=== PATIENT | female | born 1975 | race Two or more races ===

== ENCOUNTER 2020-04-26 16:14 | Emergency (ER) | payer MEDICAID ==
[~2020-04-26] VITALS: Ht 162.6 cm; Wt 106.6 kg
--- NOTE | 2020-04-26 16:43 | NUR ---
ED Nurse Note: Pt came for bilateral swelling non pitting edema feet. Pt is alert and orientedx4, ambulatory. Pt denies pain. Pt also states she has bruises. Bilateral post tibial pulses 3+. Pt has been seen by [facility].
[2020-04-26 16:45] VITALS: BP 162/93
--- NOTE | 2020-04-26 17:00 | Diagnostic Imaging Report ---
Indication: Right ankle pain Technique: 3 views of the right ankle Comparison: Findings: No acute fractures. No dislocations. Joint spaces are preserved. Normal mineralization. No radiopaque foreign body. Impression: Negative
--- NOTE | 2020-04-26 17:12 | Diagnostic Imaging Report ---
Indication: Ankle pain Technique: 3 views of the left ankle Comparison: Findings: No acute fractures. No dislocations. Joint spaces are preserved. Normal mineralization. No radiopaque foreign body. Impression: Negative
[2020-04-26 17:23] LABS: ANION GAP 9 mmol/L (5-15); BLOOD UREA NITROGEN 15 mg/dL (7-18); CALCIUM 8.8 MG/DL (8.5-10.1); CARBON DIOXIDE 25 MMOL/L (21-32); CHLORIDE 104 MMOL/L (98-107); CREATININE 0.9 MG/DL (0.55-1.30); POTASSIUM 3.8 MMOL/L (3.5-5.1); SODIUM 138 MMOL/L (136-145)
[2020-04-26] MEDS ORDERED: Tylenol #3 tab (300mg/30mg) ORAL ONE (18:00)
[2020-04-26] MEDS ORDERED: Ketorolac 30mg Inj IV ONE (18:00)
--- NOTE | 2020-04-26 18:05 | Emergency Room Report ---
History of Present Illness General Chief Complaint: Edema Source: Patient Present Illness HPI 44 YO female presents to the ED c/o 10 out of 10 in severity bilateral ankle pain with swelling and bruising noted. Patient denies trauma or fall. Patient reports progressive onset of her symptoms. Patient reports history of high blood pressure and states that her blood pressure has been elevated lately. She denies fevers or chills. She denies history of gout, pseudogout, arthritis or rheumatological conditions. She reports she is able to ambulate and bear weight. She reports standing for long periods of time and ambulating exacerbates her symptoms. she denies erythema. Patient does report that several days ago she was experiencing pain in the left thigh and calf which is still present. She denies smoking hx or recent travel. She denies estrogen use. Allergies: Coded Allergies: No Known Allergies (Unverified , 04/26/20) COVID-19 Screening Contact w/high risk pt: No Experienced COVID-19 symptoms?: No COVID-19 Testing performed CHARGER TESTER: No Patient History Past Medical History: see triage record, HTN Past Surgical History: none Pertinent Family History: none Last Menstrual Period: na Now: No Reviewed Nursing Documentation: PMH: Agreed; PSxH: Agreed Nursing Documentation-PMH Past Medical History: No History, Except For Hx Hypertension: Yes Review of Systems All Other Systems: negative except mentioned in HPI Physical Exam Vital Signs Date Time Temp Pulse Resp B/P (MAP) Pulse Ox O2 Delivery O2 Flow Rate FiO2 04/26/20 16:22 98.1 90 17 173/97 (122) 98 Room Air 04/26/20 16:45 99 Sp02 EP Interpretation: reviewed, normal General Appearance: well appearing, no apparent distress, alert, GCS 15, non- toxic, obese Head: normocephalic, atraumatic Eyes: bilateral eye normal inspection, bilateral eye PERRL ENT: hearing grossly normal, normal voice Neck: full range of motion Respiratory: chest non-tender, lungs clear, normal breath sounds, speaking full sentences Cardiovascular #1: regular rate, rhythm, normal capillary refill, edema - 3+ non pitting edema bilaterally, Left > Right Cardiovascular #2: 2+ dorsalis pedis (R) - and posterior tibial , 2+ dorsalis pedis (L) - and posterior tibial Musculoskeletal: back normal, normal range of motion, gait/station normal, tender - Bilateral ankles, FROM with subjective pain, No obvoious visible/hemalatha reciable bruising noted, No erythema, no warmth. Some mild Left Calf ttp. Neurologic: alert, motor strength/tone normal, oriented x3, sensory intact, responsive, speech normal Psychiatric: judgement/insight normal Skin: no rash, normal color - No appreciable ecchymosis., other - swelling to the bilateral ankles, left greater than right. No erythema or warmth. Medical Decision Making PA Attestation Dr. Ramirez Is my supervising Physician whom patient management has been discussed with. Diagnostic Impression: Primary Impression: Bilateral ankle pain Qualified Codes: M25.571 - Pain in right ankle and joints of right foot; M25.572 - Pain in left ankle and joints of left foot Additional Impressions: Edema of left ankle Edema of right ankle ER Course 44 YO female presents to the ED c/o 10 out of 10 in severity bilateral ankle pain with swelling and bruising noted. Patient denies trauma or fall. Patient reports progressive onset of her symptoms. Patient reports history of high blood pressure and states that her blood pressure has been elevated lately. She denies fevers or chills. She denies history of gout, pseudogout, arthritis or rheumatological conditions. She reports she is able to ambulate and bear weight. She reports standing for long periods of time and ambulating exacerbates her symptoms. she denies erythema. Patient does report that several days ago she was experiencing pain in the left thigh and calf which is still present. She denies smoking hx or recent travel. She denies estrogen use. Ddx considered but are not limited to peripheral edema, Venous insufficiency, DVT, Gout/pseudo gout, rheumatological condition, septic joint, CHF, fracture, D/L, sprain/strain just to name a few Vital signs: are WNL, pt. is afebrile H&PE are most consistent with non-pitting edema most likely secondary to BP elevation. Due to inconsistency in amount of swelling of the left ankle compared to the right, and calf tenderness I feel DVT must be r/o from left leg. pt. is non-toxic in appearance, NAD. Ambulatory without assistance. No evidence to suggest infection. ORDERS: - Xray Bilateral Ankles 3 views each - negative for acute fracture, d/l or soft tissue injury. -Venous duplex US of the left LE: negative for DVT. -BMP: Unremarkable normal renal fn. - PT/PTT: WNL ED INTERVENTIONS: -Toradol IV - T#3 PO -I do not identify an emergent condition at this time. With current presentation, pt. is stable for close outpatient follow up and conservative treatment. D/w pt. to return promptly to ED with worsening or new symptoms.- Pt. verbalizes' understanding and agreement with proposed treatment plan. DISCHARGE: At this time pt. is stable for d/c to home. Will provide printed pa tient care instructions, and any necessary prescriptions. Care plan and follow up instructions have been discussed with the patient prior to discharge. Labs Test 04/26/20 16:45 Prothrombin Time 10.6 SEC (9.30-11.50) Prothromb Time International Ratio 1.0 (0.9-1.1) Activated Partial Thromboplast Time 26 SEC (23-33) Sodium Level 138 MMOL/L (136-145) Potassium Level 3.8 MMOL/L (3.5-5.1) Chloride Level 104 MMOL/L (98-107) Carbon Dioxide Level 25 MMOL/L (21-32) Anion Gap 9 mmol/L (5-15) Blood Urea Nitrogen 15 mg/dL (7-18) Creatinine 0.9 MG/DL (0.55-1.30) Estimat Glomerular Filtration Rate > 60 mL/min (>60) Glucose Level 133 MG/DL (74-106) Calcium Level 8.8 MG/DL (8.5-10.1) Other X-Ray Diagnostic Results Other X-Ray Diagnostic Results #1: X-Ray ordered: Left Ankle # of Views/Limited Vs Complete: 3 View Indication: Pain EP Interpretation: Yes PA Xray: Interpretation reviewed, by supervising MD, and agrees with findings. Interpretation: no dislocation, no soft tissue swelling, no fractures Impression: No acute disease Electronically Signed by: Gayathri Schultz PA-C Other X-Ray Diagnostic Results #2: X-Ray ordered: Right Ankle # of Views/Limited Vs Complete: 3 View Indication: Pain EP Interpretation: Yes PA Xray: Interpretation reviewed, by supervising MD, and agrees with findings. Interpretation: no dislocation, no soft tissue swelling, no fractures Impression: No acute disease Electronically Signed by: Gayathri Schultz PA-C CT/MRI/US Diagnostic Results CT/MRI/US Diagnostic Results : Imaging Test Ordered: Venous Duplex US of the left lower extremity Impression " Impression: Negative for acute DVT."--Per official radiology report- Please see report for specific details. Last Vital Signs Date Time Temp Pulse Resp B/P (MAP) Pulse Ox O2 Delivery O2 Flow Rate FiO2 04/26/20 16:45 98.1 92 18 162/93 100 Room Air 04/26/20 16:45 99 Status: improved Disposition: HOME, SELF-CARE Condition: Stable Scripts Naproxen* (NAPROXEN*) 500 Mg Tablet 500 MG ORAL TWICE A DAY for 7 Days, #14 TAB Prov: Gayathri Schultz 04/26/20 Diclofenac Sodium (VOLTAREN) 100 Gm Gel..gram. 1 APPLIC TP TID, #100 GM Prov: Gayathri Schultz 04/26/20 Referrals: NON PHYSICIAN (PCP) [facility] Patient Instructions: Ankle Pain, Peripheral Edema Additional Instructions: ~ ~ An emergent medical condition has not been identified based on this patients presentation, exam and any necessary testing/imaging. The patient is determined to be stable for outpatient follow-up and management of symptoms by a primary care provider. Take medications as directed. Follow up with a Primary Care Provider in 3-5 days, even if your symptoms have resolved. They were significant enough for you to go to the ER, so they require further evaluation and testing that is performed on an outpatient basis. Evaluation for rheumatological conditions is recommended. --Please review list of primary care clinics, if you do not already have a primary care provider Return sooner to ED if new symptoms occur, or current symptoms become worse. - Please note that this Emergency Department Report was dictated using [employer] machine operator technology software, occasionally this can lead to erroneous entry secondary to interpretation by the dictation equipment. Gayathri Schultz Apr 26, 2020 18:05
[2020-04-26] MEDS ORDERED: NAPROXEN500 M2 ORAL (18:08)
[2020-04-26] MEDS ORDERED: VOLTAREN100 G1 TP (18:08)
--- NOTE | 2020-04-26 18:44 | NUR ---
ER DISCHARGE NOTE: Patient is cleared to be discharged per ERMD, pt is aox4, on room air, with stable vital signs. pt was given dc and prescription instructions, pt was able to verbalize understanding, pt id band and iv site removed without complications. pt is able to ambulate with steady gait. pt took all belongings.
[2020-04-26 18:45] VITALS: BP 153/96
--- NOTE | 2020-04-27 17:08 | Diagnostic Imaging Report ---
Indication: Left leg pain Technique: Grayscale and duplex images of the left lower extremity veins Comparison: None Findings: On the left, grayscale and duplex images demonstrate no evidence of intraluminal thrombus. Normal phasic Doppler waveforms, demonstrating normal augmentation response and no evidence of valvular insufficiency. Greater saphenous vein(s) and tibial veins are patent. Normal compressibility. Impression: Negative for evidence of lower extremity deep venous thrombosis on the left
== END 2020-04-26 18:46 | disposition home or self-care (01) ==
LOC: EMR 16:38
DX: M25.571 Pain in right ankle and joints of right foot (principal); M25.572 Pain in left ankle and joints of left foot; R60.0 Localized edema; I10 Essential (primary) hypertension; E66.9 Obesity, unspecified; Z68.41 Body mass index [BMI] 40.0-44.9, adult
CPT/HCPCS: 29515; 36415; 73610; 80048; 85610; 85730; 93971; 96374; J1885; Z7502; 99284